=== PATIENT | male | born 1950 | race Caucasian/White ===

== ENCOUNTER 2016-10-03 23:10 | Emergency (ER) | payer BC ==
--- NOTE | ~2016-10-03 | ER ---
PATIENT'S NAME: [facility] AGE: 66 Y [address] ROOM: [place] [id number] LOCATION: ED ADMIT DATE: 10/03/2016 ER/Outpatient Report DISCHARGE DATE: 10/04/2016 FAMILY PHYSICIAN: Narendra Case MD ATTENDING PHYSICIAN: Elvis Vargas Time of Arrival: 2312 hours. Time of Evaluation: 2312 hours. CHIEF COMPLAINT: Left flank pain. HISTORY OF PRESENT ILLNESS: The patient states he was watching TV approximately 1 hour prior to arrival. He developed left flank pain, nauseated, has not vomited. Denies having any urinary frequency or pain with urination. States he does have a history of kidney stones; however, it has been over 10 years since the last time he had a stone. Denies having any problems with constipation. He has not felt ill at all prior to onset of these symptoms 1 hour ago. ALLERGIES: NO KNOWN ALLERGIES. CURRENT MEDICATIONS: On his chart and reviewed by me. PAST MEDICAL HISTORY: Kidney stones, sleep apnea, sick sinus syndrome. PAST SURGERIES: Pacemaker. SOCIAL HISTORY: He is retired. Denies use of tobacco, drugs, or alcohol. ROS: Negative other than those mentioned in the HPI. PHYSICAL EXAMINATION: VITAL SIGNS: He weighed 90.5 kg; blood pressure is 187/79; pulse is 63; respirations 20; temperature of 96.1, tympanic; O2 saturation is 99% on room air. Rates his pain an 8/10. Cale Coma Scale is 15. GENERAL: He is awake, alert, and oriented x4. SKIN: Pale, slightly diaphoretic, warm. LUNGS: Lung sounds were clear throughout. PATIENT'S NAME: [facility] AGE: 66 Y [address] ROOM: [place] [id number] LOCATION: ED ADMIT DATE: 10/03/2016 ER/Outpatient Report DISCHARGE DATE: 10/04/2016 FAMILY PHYSICIAN: Narendra Case MD ATTENDING PHYSICIAN: Elvis Vargas HEART: Regular rate and rhythm. ABDOMEN: Soft and nondistended. Bowel sounds are present. He is tender in the left flank area. EXTREMITIES: He moves all extremities strongly and equally. He does walk with a slow gait due to the discomfort in his back. EMERGENCY DEPARTMENT COURSE: Saline lock was initiated. Fluids of normal saline were started at a wide- open rate. He was given Zofran 4 mg IV and Toradol 30 mg IV. LABORATORY DATA AND X-RAYS: Lab work was drawn. CBC is within normal limits. Chem panel is within normal limits. His creatinine is at 1.5 with a GFR of 47. He was able to give us a clean-catch UA upon arrival to the ER. He has 25 leukocytes, but negative nitrites. 250 of blood, negative bacteria. The patient states he is claustrophobic and would like something prior to CT scan. He was given Valium [address] stone protocol was completed. Radiology reported on the chart shows nonobstructive bilateral nephrolithiasis and layering stone within the urinary bladder. The patient was reviewed with Dr. Vargas. IMPRESSION: Bilateral renal calculi. PLAN: Home, rest, fluids. Prescription was written for Flomax and [place]. He is to follow up with Dr. Avalos within the next 2-3 days. Return to the ER if symptoms persist or worsen. He verbalized understanding. VINCENZO ARGUETA APRN FOR MD [facility] SILVA/markie /[id number] d: 10/04/16 05 t: 10/06/16 1804, OUTPATIENT REPORT
[~2016-10-03 23:10] MED LIST: ASPIRIN LO-DOSE81 MG PO; COQ-1030 MG PO; CPAP INH; LIPITOR40 MG PO; VITAMIN B-12250 MCG PO; ZYLOPRIM300 MG PO
[2016-10-03 23:32] LABS: BILIRUBIN URINE NEGATIVE (NEGATIVE); BLOOD URINE 250 /UL (NEGATIVE); COLOR URINE YELLOW (YELLOW); GLUCOSE URINE NEGATIVE (NEGATIVE); KETONE URINE 5 mg/dL (NEGATIVE); LEUKOCYTES URINE 25 /UL (NEGATIVE); NITRITE URINE NEGATIVE (NEGATIVE); PROTEIN URINE 30 mg/dL (NEGATIVE); SPEC GRAVITY URINE 1.025 (1.003-1.035); TURBIDITY URINE CLEAR (CLEAR); UROBILINOGEN URINE 1 mg/dL (NORMAL)
[2016-10-03 23:40] LABS: BACTERIA URINE NEGATIVE (NEGATIVE); EPITHELIAL URINE 0-2 #/HPF (NEGATIVE); RBC URINE FULL FIELD #/HPF (NEGATIVE)
[2016-10-03 23:46] LABS: BASOPHIL # 0.1 K/uL (0.0-0.2); BASOPHIL % 0.6 %; EOSINOPHIL # 0.2 K/uL (0.0-0.5); EOSINOPHIL % 2.4 %; HEMOGLOBIN 13.9 g/dL (11.0-16.0); IMMATURE GRANULOCYTE % 0.3 %; LYMPHOCYTE % 38.5 %; MCH 29.2 pg (27.0-34.0); MCHC 33.1 gm/dL (32.0-36.5); MCV 88.2 fl (83.0-98.0); MONOCYTE # 0.5 K/uL (0.0-1.0); MONOCYTE % 6.4 %; MPV 10.3 fl (9.4-12.4); NEUTROPHIL # (ANC) 4.1 K/uL (1.4-9.0); NEUTROPHIL % 51.8 %; NRBC % 0 /100WBC (0-0.00); PLATELET COUNT 175 K/uL (150-450); RBC 4.76 M/uL (3.50-5.50); RDW-CV 13.5 % (11.9-14.6); WBC 7.9 K/uL (4.0-11.0)
[2016-10-04 00:05] LABS: ANION GAP 12.8 (10.0-19.0); CALCIUM 9.1 mg/dL (8.5-10.5); CREATININE 1.5 mg/dL (0.6-1.3); POTASSIUM 3.8 mMol/L (3.7-5.1); TOTAL BILIRUBIN 0.6 mg/dL (0.0-1.5); TOTAL PROTEIN 7.2 g/dL (6.0-8.4)
[2016-10-06] MEDS ORDERED: B COMPLEX1 EACH PO (17:30)
[2016-10-06] MEDS ORDERED: LOVAZA1 GM PO (17:30)
[2016-10-06] MEDS ORDERED: HYDROCODON-ACE1 EAC4 PO (17:31)
[2016-10-06] MEDS ORDERED: FLOMAX0.4 MG PO (17:32)
== END 2016-10-04 00:33 | disposition disaster alternative care site (69) ==
LOC: GMED 23:10
PROVIDERS: Nurse Practitioner Family
DX: N20.0 Calculus of kidney (principal); Z95.0 Presence of cardiac pacemaker
CPT/HCPCS: J1885; J2405; J3360; J7030